=== PATIENT | female | born 1960 | race African-American/Black ===

== ENCOUNTER 2019-07-24 09:35 | Emergency (ER) | payer MEDICAID ==
[~2019-07-24] VITALS: Ht 170.2 cm; Wt 90.0 kg
[2019-07-24] MEDS ORDERED: KETOROLAC 30MG/ML VIAL IV STA (11:18)
[2019-07-24] MEDS ORDERED: SODIUM CHLORIDE 0.9% 1,000 ML IV ONE (11:18)
[2019-07-24] MEDS ORDERED: ASPIRIN 81MG TABLET PO ONE (11:30)
[2019-07-24] MEDS ORDERED: LORAZEPAM 0.5MG TABLET PO ONE (11:30)
[2019-07-24 12:07] LABS: BASOPHILS % 0.4 % (0.0-2.0); EOSINOPHILS % 2.3 % (0.0-5.0); HEMATOCRIT. 39.7 % (36.0-48.0); HEMOGLOBIN. 12.9 g/dL (12.0-16.0); LYMPHOCYTES % 25.8 % (20.0-50.0); MEAN CORPUSCULAR HEMOGLOBIN 27.2 pg (28.0-32.0); MEAN CORPUSCULAR VOLUME 83.7 fL (81.0-99.0); MEAN PLATELET VOLUME 9.3 fl (7.4-10.4); MONOCYTES % 7.2 % (2.0-8.0); NEUTROPHILS % 64.3 % (40.0-76.0); PLATELET 269 x1000/uL (130-400); RED BLOOD CELL COUNT 4.74 mill/uL (4.2-5.4); RED CELL DISTRIBUTION WIDTH 14.4 % (11.6-14.6)
[2019-07-24 12:10] LABS: CHLORIDE 109 mEq/L (98-107)
[2019-07-24 12:12] LABS: CLARITY URINE CLOUDY (CLEAR); COLOR URINE YELLOW (YELLOW); KETONES URINE NEGATIVE (NEGATIVE); LEUKOCYTE ESTERASE URINE NEGATIVE (NEGATIVE); NITRITE URINE NEGATIVE (NEGATIVE); OCCULT BLOOD URINE NEGATIVE (NEGATIVE); PH URINE 7.5 (4.5-8.0); PROTEIN URINE NEGATIVE (NEGATIVE); SPECIFIC GRAVITY URINE 1.009 (1.005-1.030); UROBILINOGEN URINE 0.2 E.U./dL (0.2-1.0)
[2019-07-24 12:19] LABS: CREATINE KINASE 77 IU/L (26-192)
[2019-07-24 12:21] LABS: CREATINE KINASE MB FRACTION < 1.0 ng/mL (0.5-3.6)
[2019-07-24 14:04] VITALS: BP 156/87
== END 2019-07-24 14:00 | disposition home or self-care (01) ==
LOC: ER 09:35
DX: R07.89 Other chest pain (principal); M79.89 Other specified soft tissue disorders; R42 Dizziness and giddiness
CPT/HCPCS: 36415; 70450; 71045; 80053; 81003; 81025; 82550; 82553; 83735; 83880; 84484; 85025; 93005; 96361; 96374; 99284; J1885; J7030; Z7610

== ENCOUNTER 2019-12-24 10:19 | Emergency (ER) | payer MEDICAID ==
[~2019-12-24] VITALS: Ht 172.7 cm; Wt 96.0 kg
[2019-12-24] MEDS ORDERED: KETOROLAC 30MG/ML VIAL IM ONE (12:30)
[2019-12-24 12:37] VITALS: BP 146/88
== END 2019-12-24 12:39 | disposition home or self-care (01) ==
LOC: ER 10:19
DX: M54.10 Radiculopathy, site unspecified (principal)
CPT/HCPCS: 82962; 96372; 99283; J1885

== ENCOUNTER 2021-03-16 12:52 | Emergency (ER) | payer MEDICAID ==
[~2021-03-16] VITALS: Ht 167.6 cm; Wt 73.0 kg
[2021-03-16] MEDS ORDERED: IBUPROFEN 600MG TABLET PO STA (15:13)
[2021-03-16 18:06] LABS: CLARITY URINE CLEAR (CLEAR); COLOR URINE YELLOW (YELLOW); KETONES URINE NEGATIVE (NEGATIVE); LEUKOCYTE ESTERASE URINE NEGATIVE (NEGATIVE); NITRITE URINE NEGATIVE (NEGATIVE); OCCULT BLOOD URINE NEGATIVE (NEGATIVE); PROTEIN URINE NEGATIVE (NEGATIVE); SPECIFIC GRAVITY URINE 1.007 (1.005-1.030); UROBILINOGEN URINE 0.2 E.U./dL (0.2-1.0)
[2021-03-16] MEDS ORDERED: T3 PO (18:48)
[2021-03-16] MEDS ORDERED: NAPR-673 PO (18:48)
[2021-03-16 18:56] VITALS: BP 155/98
== END 2021-03-16 18:57 | disposition home or self-care (01) ==
LOC: ER 12:52
DX: M54.9 Dorsalgia, unspecified (principal)
CPT/HCPCS: 71045; 81003; 99284

== ENCOUNTER → 2022-03-04 | Emergency (ER) | payer MEDICAID ==
[~2022-03-04] VITALS: Ht 170.2 cm; Wt 75.0 kg
[~2022-03-04] MED LIST: ASPIRIN 325MG EC TABLET PO NR; ASPIRIN 325MG EC TABLET PO ONE; IBUP-2028 MT; IBUPROFEN 400MG TABLET PO NR; IBUPROFEN 400MG TABLET PO ONE; LIDO1ADH23 TP; LIDOCAINE 5% PATCH TOP SCH; METH-653 MT; METHOCARBAMOL 750MG TABLET PO SCH; NAPR-673 PO; T3 PO
[2022-03-04 18:07] VITALS: BP 179/107
[2022-03-04 18:51] LABS: EOSINOPHILS % 4.6 % (0.0-5.0); HEMATOCRIT. 37.7 % (36.0-48.0); HEMOGLOBIN. 12.2 g/dL (12.0-16.0); LYMPHOCYTES % 33.7 % (20.0-50.0); MEAN CORPUSCULAR HEMOGLOBIN 26.3 pg (28.0-32.0); MEAN CORPUSCULAR VOLUME 81.7 fL (81.0-99.0); MEAN PLATELET VOLUME 9.6 fl (7.4-10.4); NEUTROPHILS % 51.7 % (40.0-76.0); PLATELET 235 x1000/uL (130-400); RED BLOOD CELL COUNT 4.61 mill/uL (4.2-5.4); RED CELL DISTRIBUTION WIDTH 15.3 % (11.6-14.6)
[2022-03-04 19:05] LABS: CHLORIDE 112 mEq/L (98-107)
== END ==
LOC: ER 22:14
DX: R07.89 Other chest pain (principal); M54.6 Pain in thoracic spine; Z79.899 Other long term (current) drug therapy
CPT/HCPCS: 36415; 71045; 80053; 83880; 84484; 85025; 93005; 99285

== ENCOUNTER 2023-08-20 08:00 | Emergency (ER) | payer MEDICAID ==
[~2023-08-20] VITALS: Ht 167.6 cm; Wt 79.0 kg
[~2023-08-20 08:00] MED LIST changes: -ASPIRIN 325MG EC TABLET PO NR; -ASPIRIN 325MG EC TABLET PO ONE; -IBUPROFEN 400MG TABLET PO NR; -IBUPROFEN 400MG TABLET PO ONE; -LIDOCAINE 5% PATCH TOP SCH; -METHOCARBAMOL 750MG TABLET PO SCH
[2023-08-20 08:05] VITALS: O2SAT 100
[2023-08-20 08:31] LABS: BASOPHILS % 0.8 % (0.0-2.0); EOSINOPHILS % 3.1 % (0.0-5.0); HEMOGLOBIN. 12.9 g/dL (12.0-16.0); LYMPHOCYTES % 37.8 % (20.0-50.0); MEAN CORPUSCULAR HEMOGLOBIN 26.7 pg (28.0-32.0); MEAN CORPUSCULAR HGB CONC 32.3 g/dL (31.0-37.0); MEAN CORPUSCULAR VOLUME 82.5 fL (81.0-99.0); MEAN PLATELET VOLUME 9.6 fl (7.4-10.4); MONOCYTES % 8.8 % (2.0-8.0); NEUTROPHILS % 49.5 % (40.0-76.0); PLATELET 243 x1000/uL (130-400); RED BLOOD CELL COUNT 4.85 mill/uL (4.2-5.4); RED CELL DISTRIBUTION WIDTH 14.5 % (11.6-14.6); WHITE BLOOD COUNT 5.9 x1000/uL (4.5-11.0)
[2023-08-20 08:46] LABS: CHLORIDE 108 mEq/L (98-107); INDEX HEMOLYSI 1 (1-3); INDEX ICTERIC 1 (1-4); INDEX LIPEMIC 1 (1-3); POTASSIUM 4.3 mEq/L (3.5-5.1); SODIUM 138 mEq/L (136-145)
[2023-08-20 08:50] LABS: PARTIAL THROMBOPLASTIN TIME 27.6 sec (23.4-31.0); PROTHROMBIN TIME 10.3 sec (9.6-11.0)
[2023-08-20 09:05] LABS: ALANINE AMINOTRANSFERASE 27 IU/L (13-61); ALBUMIN 3.6 g/dL (3.4-5.0); ASPARTATE AMINOTRANSFERASE 22 IU/L (15-37); BILIRUBIN TOTAL 0.4 mg/dL (0.1-1.0); CARBON DIOXIDE 27 mEq/L (21-32); CREATININE 0.8 mg/dL (0.6-1.3); GLUCOSE 128 mg/dL (70-105); PROTEIN TOTAL 8.4 g/dL (6.0-8.3); UREA NITROGEN BLOOD 13 mg/dL (7-21)
[2023-08-20 09:10] LABS: TROPONIN I HIGH SENSITIVITY < 4 ng/L (<54)
[2023-08-20 09:18] LABS: CLARITY URINE CLEAR (CLEAR); COLOR URINE YELLOW (YELLOW); GLUCOSE URINE NEGATIVE (NEGATIVE); PH URINE 5.5 (4.5-8.0); PROTEIN URINE TRACE (NEGATIVE); SPECIFIC GRAVITY URINE 1.011 (1.005-1.030)
[2023-08-20 09:19] LABS: KETONES URINE NEGATIVE (NEGATIVE); LEUKOCYTE ESTERASE URINE NEGATIVE (NEGATIVE); NITRITE URINE NEGATIVE (NEGATIVE); OCCULT BLOOD URINE NEGATIVE (NEGATIVE); UROBILINOGEN URINE 0.2 E.U./dL (0.2-1.0)
[2023-08-20] MEDS ORDERED: KETOROLAC 60MG/2ML VIAL IM ONE (10:15)
[2023-08-20] MEDS ORDERED: ACETAMINOPHEN 325MG TABLET PO ONE (10:15)
[2023-08-20 10:20] LABS: BACTERIA URINE FEW; RBC URINE 0-2 /hpf (0-2); SQUAMOUS EPITHELIAL CELL URINE FEW /lpf (RARE/1+); WBC URINE 0-2 /hpf (0-2); YEAST URINE NONE SEEN
[2023-08-20 13:35] VITALS: BP 144/82; PULSE 74; RESP 23; TEMP 98.5
[2023-08-20] MEDS ORDERED: IBUP-1525 MT (13:39)
[2023-08-20] MEDS ORDERED: TOPUD MT (13:39)
== END 2023-08-20 13:54 | disposition home or self-care (01) ==
LOC: ER 08:00
DX: R07.89 Other chest pain (principal)
CPT/HCPCS: 80053; 81003; 85025; 85379; 85610; 85730; 84484; 36415; 71045; 93005; 96372; 99285; J1885; Z7610 ×2

== ENCOUNTER 2025-11-15 15:42 | Emergency (ER) | payer MEDICAID ==
[~2025-11-15] VITALS: Ht 170.2 cm; Wt 91.0 kg
[~2025-11-15 15:42] MED LIST changes: +AMLO2.5T45 PO; +ASPI-1406 PO; -NAPR-673 PO; +TOPUD MT
[2025-11-15 15:47] VITALS: O2SAT 98
[2025-11-15 16:05] LABS: CLARITY URINE CLEAR (CLEAR); COLOR URINE YELLOW (YELLOW); GLUCOSE URINE NEGATIVE (NEGATIVE); KETONES URINE NEGATIVE (NEGATIVE); LEUKOCYTE ESTERASE URINE NEGATIVE (NEGATIVE); NITRITE URINE NEGATIVE (NEGATIVE); OCCULT BLOOD URINE NEGATIVE (NEGATIVE); PH URINE 5.5 (4.5-8.0); PROTEIN URINE NEGATIVE (NEGATIVE); SPECIFIC GRAVITY URINE 1.004 (1.005-1.030); UROBILINOGEN URINE 0.2 E.U./dL (0.2-1.0)
[2025-11-15 17:17] LABS: BASOPHILS % 0.7 % (0.0-2.0); EOSINOPHILS % 1.8 % (0.0-5.0); HEMATOCRIT. 39.1 % (36.0-48.0); HEMOGLOBIN. 12.3 g/dL (12.0-16.0); LYMPHOCYTES % 28.8 % (20.0-50.0); MEAN PLATELET VOLUME 9.2 fl (7.4-10.4); MONOCYTES % 5.9 % (2.0-8.0); NEUTROPHILS % 62.8 % (40.0-76.0); PLATELET 259 x1000/uL (130-400); RED BLOOD CELL COUNT 4.62 mill/uL (4.2-5.4); RED CELL DISTRIBUTION WIDTH 15.1 % (11.6-14.6)
[2025-11-15 17:34] LABS: CREATININE 1.0 mg/dL (0.6-1.0); UREA NITROGEN BLOOD 6 mg/dL (9-23)
[2025-11-15 17:44] VITALS: BP 150/92; PULSE 95; RESP 17; TEMP 36.8; O2SAT 98
== END 2025-11-15 18:18 | disposition home or self-care (01) ==
LOC: ER 15:42
DX: R10.A2 Flank pain, left side (principal); I10 Essential (primary) hypertension; E11.9 Type 2 diabetes mellitus without complications; E78.00 Pure hypercholesterolemia, unspecified; Z90.49 Acquired absence of other specified parts of digestive tract; Z79.82 Long term (current) use of aspirin; Z79.899 Other long term (current) drug therapy
CPT/HCPCS: 36415; 74176; 80048; 81003; 85025; 99284